=== PATIENT | female | born 1985 | race Caucasian/White ===

== ENCOUNTER → 2025-07-05 07:51 | Outpatient (REF) | payer BC, SELFPAY ==
--- OUTSIDE RECORDS SUMMARY | 2025-07-05 07:53 | XMS_ITS | Patient Health Record ---
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 Authorization received from SIGNATURE ON FILE 05-03-2025 Logged by Henri Moulton Lipid Panel-[id number] Reviewed date:05/04/2025 08:32:15 AM Interpretation: Performing Lab:[facility], [address], [place], Phone - [phone], Director - Anum Notes/Report: Cholesterol, Total 142 100-199 mg/dL Triglycerides 39 0-149 mg/dL HDL Cholesterol 64 >39 mg/dL VLDL Cholesterol Rodney 9 5-40 mg/dL LDL Chol Calc (NIH) 69 0-99 mg/dL Verbal Order Reviewed date:04/30/2025 09:43:48 PM Interpretation: Performing Lab:[facility], [address], [place], Phone - [phone], Director - Anum Notes/Report: See below: Comment: Please provide requested information and fax to . . The [place] Code of Federal Regulations requires a written and signed request be forwarded to a laboratory following a verbal order of a laboratory test. Please assist us to meet this requirement and to complete our records. . Date: Diagnosis code(s) provided for this order: Z13.1 Z00.00 E55.9 . Additional Diagnosis Code(s): Please Print . ICD-9/10 Diagnosis Code(s): . Physician or Authorized Designee: Please Print . Physician or Authorized Designee Signature: . Your Signature Confirms Your Order Of The Test(s) Listed . Additional Test(s) Requested Comment: Test(s) added per LYNDON LAINEZ at account 04-28-2025 Logged by Venus Santiago Test# [id number] Lipid Panel Comp. Metabolic Panel [id number] Reviewed date:04/28/2025 08:00:34 AM Interpretation: Performing Lab:[facility], [address], [place], Phone - [phone], Director - [facility] Notes/Report: Glucose 82 70-99 mg/dL BUN 17 6-24 mg/dL Creatinine 0.60 0.57-1.00 mg/dL eGFR 116 >59 mL/min/1.73 BUN/Creatinine Ratio 28 9-23 Sodium 140 134-144 mmol/L Potassium 4.1 3.5-5.2 mmol/L Chloride 103 96-106 mmol/L Carbon Dioxide, Total 20 20-29 mmol/L Calcium 9.2 8.7-10.2 mg/dL Protein, Total 6.9 6.0-8.5 g/dL Albumin 4.6 3.9-4.9 g/dL Globulin, Total 2.3 1.5-4.5 g/dL Bilirubin, Total 0.4 0.0-1.2 mg/dL Alkaline Phosphatase 91 44-121 IU/L AST (SGOT) 17 0-40 IU/L ALT (SGPT) 16 0-32 IU/L Vitamin D, [id number] Reviewed date:04/28/2025 08:00:34 AM Interpretation: [facility]forming [facility], [address] [place] [address], Phone - [phone], Director - MDJodry Notes/Report: Vitamin D, 25-Hydroxy 51.4 30.0-100.0 ng/mL Vitamin D deficiency has been defined by the [place] of [employer] and an Endocrine Society practice guideline as a level of serum 25-OH vitamin D less than 20 ng/mL (1,2). The Endocrine Society went on to further define vitamin D insufficiency as a level between 21 and 29 ng/mL (2). 1. IOM ([place] of [employer]). 2010. Dietary reference intakes for calcium and D. [place]: The National Academies Press. 2. Tammi MF, [place], Germain SEVILLA, et al. Evaluation, treatment, and prevention of vitamin D deficiency: an Endocrine Society clinical practice guideline. JCEM. 2010; 96(7):1911-30. CBC With Differential/Platel et-[id number] Reviewed date:04/28/2025 08:00:34 AM Interpretation: Performing Lab:[facility], [address] [place] [address], [place], Phone - [phone], Director - Anum Notes/Report: WBC 4.7 3.4-10.8 x10E3/uL RBC 4.13 3.77-5.28 x10E6/uL Hemoglobin 13.1 11.1-15.9 g/dL Hematocrit 39.9 34.0-46.6 % MCV 97 79-97 fL MCH 31.7 26.6-33.0 pg MCHC 32.8 31.5-35.7 g/dL RDW 11.8 11.7-15.4 % Platelets 215 150-450 x10E3/uL Neutrophils 48 Not Estab. % Lymphs 40 Not Estab. % Monocytes 10 Not Estab. % Eos 2 Not Estab. % Basos 0 Not Estab. % Neutrophils (Absolute) 2.2 1.4-7.0 x10E3/uL Lymphs (Absolute) 1.9 0.7-3.1 x10E3/uL Monocytes(Absolute) 0.5 0.1-0.9 x10E3/uL Eos (Absolute) 0.1 0.0-0.4 x10E3/uL Baso (Absolute) 0.0 0.0-0.2 x10E3/uL Immature Granulocytes 0 Not Estab. % Immature Grans (Abs) 0.0 0.0-0.1 x10E3/uL Urinalysis, Complete-[id number] Reviewed date:04/28/2025 08:00:34 AM Interpretation: Performing Lab:[facility] [place], [address] [place] [address], [place], Phone - [phone], Director - Anum Notes/Report: Specific [place] 1.008 1.005-1.030 pH 7.0 5.0-7.5 Urine-Color Yellow Yellow Appearance Clear Clear WBC Esterase Negative Negative Protein Negative Negative/Trace Glucose Negative Negative Ketones Negative Negative Occult Blood Negative Negative Bilirubin Negative Negative Urobilinogen,Semi-Qn 0.2 0.2-1.0 mg/dL Nitrite, Urine Negative Negative Microscopic Examination Micr oscopic follows if indicated. Microscopic Examination See below: Micr oscopic was indicated and was performed. WBC None seen 0 - 5 /hpf RBC None seen 0 - 2 /hpf Epithelial Cells (non renal) 0-10 0 - 10 /hpf Casts None seen None seen /lpf Bacteria None seen None seen/Few Hemoglobin [id number] Reviewed date:04/28/2025 08:00:34 AM Interpretation: Performing Lab:[facility] [place], [address] [place] [address], [place], Phone - [phone], Director - Anum Notes/Report: Hemoglobin A1c 5.3 4.8-5.6 % . Prediabetes: 5.7 - 6.4 Diabetes: >6.4 Glycemic control for adults with diabetes: <7.0 Reason For Referral No Information Medications Medication SIG (Take, Route, Frequency, Duration) Notes Start Date End Date Status Active Calcium Active Social History Tobacco Use: Social History Observation Description Date Details (start date - stop date) Never Smoker NA - NA Tobacco Use/Smoking Question Answer Notes Are you a nonsmoker Problems Problem Type SNOMED Code ICD Code Onset Dates Problem Status W/U Status Risk Notes Problem Vitamin D deficiency (29372979) Vitamin D deficiency, unspecified (E55.9) Active confirmed Problem Adult health examination (761970766) Adult general medical exam (Z00.00) Active confirmed Problem Vitamin D deficiency (69956527) Vitamin D deficiency (E55.9) Active confirmed Problem Diabetes mellitus screening (673356948) Diabetes mellitus screening (Z13.1) Active confirmed Problem Endocrine/metab olic screening (223460600) Encounter for screening for endocrine disorder (Z13.29) Active confirmed Problem Unable to concentrate (finding) (06696875) Difficulty concentrating (R41.840) Active confirmed Problem Generalized anxiety disorder (06589846) Anxiety, generalized (F41.1) Active confirmed Vital Signs Heart Rate 80 /min 05/08/2025 Oximetry 99 % 05/08/2025 Blood pressure diastolic 80 mm Hg 05/08/2025 Height 65 in 05/08/2025 Blood pressure systolic 118 mm Hg 05/08/2025 Encounters Encounter Location Date Provider Diagnosis [facility] [address] [place] [address] 04/03/2025 PETEREBEL BROWNA Anxiety, generalized F41.1 and Mother currently breast-feeding Z39.[address] [facility] [address] [place], [place] 05/08/2025 PETE CHANG Adult general medica l exam Z00.00 ; Thumb pain, unspecified laterality M79.646 ; Dizziness R42 ; Anxiety, generalized F41.1 ; Difficulty concentrating R41.840 ; 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 and Encounter for examination of blood pressure without abnormal findings Z01.30 [facility] [address] [address] 04/03/2025 PETE BERNARDO [facility] [address] 05/19/2025 PETE BERNARDO [facility] [address] [place] [address] 04/27/2025 PETE BERNARDO [facility] [address] [place] [address] 04/27/2025 PETE BERNARDO [facility] [address] [place] [address] 05/09/2025 PETE BERNARDO [facility] [address] [place] [address] 05/22/2025 PETE BERNARDO [facility] [address] [place] [address] 05/23/2025 PETE BERNARDO [facility] [address] [place] [address] 05/29/2025 PETE BERNARDO [facility] [address] [place] [address] 05/29/2025 PETE BERNARDO [facility] [address] [place] [address] 05/29/2025 PETE BERNARDO [facility] [address] [place] [address] 05/30/2025 PETE BERNARDO [facility] [address] [place] [address] 05/30/2025 PETE BERNARDO [facility] [address] [place] [address] 06/01/2025 PETE BERNARDO Assessments Encounter Date Diagnosis (ICD Code) Assessment Notes Treatment Notes Treatment Clinical Notes Section Notes 04/03/2025 Mother currently breast-feeding (ICD-10 - Z39.1) Yesenia is a pleasant 3-year-old female present today to establish care as a new patient. # Previously seen at [facility] primary care in [place]. Last seen over a year ago. Was more consistently seen at [facility] in [place] prior to this. # Anxiety: Not currently on medication. Coping well. # Patient has recently had 2 pregnancies within the past 2 years. Currently taking a . Currently breast-feeding. # Family history of mitral stenosis in mother. Mother suffered stroke at age 44. Was seen a few months ago at [facility] urgent care regarding dizziness spells. Echocardiogram was ordered in regards to dizziness, but this was not scheduled. Plan to order baseline labs and consider workup including EKG and echocardiogram. Will consider cardiology referral if indicated. # Due for mammogram since age 39. Currently breast feeding. Will wait and place order. # Prevention: Patient up-to-date on influenza and tetanus. Has had COVID-vaccine in the past, not up-to-date. Followed by [facility] up-to-date on Pap smears. Plan to order baseline labs and follow-up in 4 weeks for CPE. All questions answered to patients satisfaction. Patient verbalized understanding of diagnosis and treatments explained. To call sooner prior to next visit it any questions/concerns arise. Case discussed with collaborating physician Dr. Cohen who reviewed the assessment and plan. Chart, medications, labs, vital signs reviewed. Dictation was accomplished with the use of [employer] voice recognition software, prone to medical misidentifications and grammatical errors. This is unintentional and the practitioner does try to identify and correct these, but some could still be present. Please do not hesitate to contact practitioner for clarification. 04/03/2025 Anxiety, generalized (ICD-10 - F41.1) Yesenia is a pleasant 3-year-old female present today to establish care as a new patient. # Previously seen at [facility] in [place]. Last seen over a year ago. Was more consistently seen at [facility] in [place] prior to this. # Anxiety: Not currently on medication. Coping well. # Patient has recently had 2 pregnancies within the past 2 years. Currently taking a . Currently breast-feeding. # Family history of mitral stenosis in mother. Mother suffered stroke at age 44. Was seen a few months ago at [facility] urgent care regarding dizziness spells. Echocardiogram was ordered in regards to dizziness, but this was not scheduled. Plan to order baseline labs and consider workup including EKG and echocardiogram. Will consider cardiology referral if indicated. # Due for mammogram since age 39. Currently breast feeding. Will wait and place order. # Prevention: Patient up-to-date on influenza and tetanus. Has had COVID-vaccine in the past, not up-to-date. Followed by [facility] up-to-date on Pap smears. Plan to order baseline labs and follow-up in 4 weeks for CPE. All questions answered to patients satisfaction. Patient verbalized understanding of diagnosis and treatments explained. To call sooner prior to next visit it any questions/concerns arise. Case discussed with collaborating physician Dr. Cohen who reviewed the assessment and plan. Chart, medications, labs, vital signs reviewed. Dictation was accomplished with the use of Dragon voice recognition software, prone to medical misidentifications and grammatical errors. This is unintentional and the practitioner does try to identify and correct these, but some could still be present. Please do not hesitate to contact practitioner for clarification. 05/08/2025 Adult general medical exam (ICD-10 - Z00.00) Yesenia is a pleasant 39-year-old female present today for CPE. #Vaccines: Up-to-date #Screening: Followed by [facility] up-to-date on Pap smear. Not up-to-date on mammogram however patient is currently breast-feeding. #Patient initially declined stepping on the scale today for her weight. Discussed with patient that this was not obtained at her new patient visit and we will need to assess once a year. Weight obtained today however not discussed per patient's request. # Dizziness: Patient has experienced intermittent dizziness for over the past month. States that occurs intermittently and only lasts a few seconds. Does mention that if feels as though she is off balance. Denies chest pain, shortness of breath, vision changes, hearing loss, palpitations, nausea or vomiting. Has family history of aortic stenosis in her mother. Mother suffered a stroke at age 44 due to this. Patient previously seen at an urgent care regarding this and echocardiogram was ordered however patient was not called regarding scheduling this. Discussed prescription of meclizine to take as needed for which patient is not interested as she is currently breast-feeding and concern regarding introducing any medications at this time. Plan to order echocardiogram for baseline given family history of aortic stenosis and current dizzy spells. Will consider Holter monitor. #Anxiety: PHQ-9 score of 3. Anxiety previously managed with therapy, but patient has not been involved within the past year. Overall states she is coping well and finds that she does not need therapy. Denies depression, SI/HI. Will continue monitor. #Difficulty concentrating: PHQ-9 score regarding concentration. Has not previously been evaluated for ADHD. Concern regarding difficulty with organization as well as completing tasks. Provided handout regarding psych referrals in the area and recommended [facility] in [place] for further evaluation. With official diagnosis, will can begin prescribing. 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 States both of her thumbs have been crooked however she is not concerned regarding aesthetics. Left thumb with overuse will sometimes develop tenderness and numbness. Will sometimes have difficulty with flexion of the thumb. Does not use any htuj-qmg-iucxbzp medication such as ibuprofen for inflammatory or pain benefit. Would like to avoid medication use at this time. Denies any recent trauma. Will obtain x-ray at this time for further evaluation. Did discuss referral to [facility] hand surgery for further evaluation. #Patient previously followed by dermatology for annual skin checks. Denies any nevi however has generalized freckles. No longer followed by dermatology. Advised patient to wear sunscreen daily while out in the sun. Advised to wear hats while in the sun in addition to longsleeve shirts as patient is fair skinned. Discussed ABCDs in regards to self skin checks. Advised to perform self exams routinely and if there is any new lesions to call for an exam. Will consider dermatology referral at patient's request. # Labs all within normal limits. # We will schedule CPE in 1 year. Patient seen and examined. Comprehensive discussion was done on the following. 1. Nutrition: It is important to follow a healthy diet based on lots of vegetables and legumes and good fat. Avoid processed food and processed carbohydrates. Prepare your own meals. Read labels and avoid high fructose corn syrup, processed chemicals added to increase shelf life and preprepared meals. Avoid fast foods. Eat slowly and plan meals for a week. Try to count calories and be mindful of daily calorie intake. Get into the habit of keeping an eye on your weight by using an appropriate scale. Learn to log exercise and discussed fitness Apps like [employer] which can help keep log off calories taken versus calories burned. Local food should be preferred. Discussed Dirty Dozen Versus Clean Fifteen. Discussed healthy supplements like fish oil, Tumeric, Curcumin, Melatonin, Resveratrol, Probiotics, Vitamin-D, Alpha-Lipoic acid, Vitamin-D and coconut oil. 2. It is important to exercise regularly. Is a good habit to walk at least 30 minutes a day. Gentle weightlifting with standard precautions to protect the back. Finding activity like cycling or hiking and get into the habit of engaging in it. Stretching before and after the exercises important. It is also important to contact me if there are any problems like shortness of breath, chest pain, back pain and joint or muscle pain associated with the exercise. 3. Discussed age appropriate screening guidelines. Colonoscopy needs to start at age 50 with stool for occult blood as appropriate. There is a new test that can test for genetic abnormalities in the stool sample, Cologuard. This would not replace a colonoscopy but could be used as a screening tool for patients who do not want a colonoscopy. We discussed the importance of early detection of colon cancer. 4. Discussed current PSA screening. PSA screening can be done in most patients between age 50 and 65. However early detection of prostate cancer needs to carefully be balanced with complications with treatment. These include incontinence, impotence etc. Each patient should decide if they would like to have this test. 5. Discussed safe driving and no use of smart phone while driving 6. Age-appropriate immunizations were discussed. A tetanus booster is needed every 10 years. Flu vaccine is recommended every year just before the start of the flu season. Shingles vaccine is recommended after age 50 but not all insurances cover it. Pneumonia vaccine is given after age 65 unless there are certain comorbidities for which it is started earlier. 7. Diagnostic labs were discussed. These could include/not limited to CBC CMP and lipids with fasting blood glucose and insulin levels. Vitamin D and hemoglobin A1c testing might be appropriate. All questions answered to patients satisfaction. Patient verbalized understanding of diagnosis and treatments explained. To call sooner prior to next visit it any questions/concerns arise. Case discussed with collaborating physician Dr. Cohen who reviewed the assessment and plan. Chart, medications, labs, vital signs reviewed. Dictation was accomplished with the use of [employer]at voice recognition software, prone to medical misidentifications and grammatical errors. This is unintentional and the practitioner does try to identify and correct these, but some could still be present. Please do not hesitate to contact practitioner for clarification. 05/08/2025 Thumb pain, unspecified laterality (ICD-10 - M79.646) Yesenia is a pleasant 39-year-old female present today for CPE. #Vaccines: Up-to-date #Screening: Followed by [facility] up-to-date on Pap smear. Not up-to-date on mammogram however patient is currently breast-feeding. #Patient initially declined stepping on the scale today for her weight. Discussed with patient that this was not obtained at her new patient visit and we will need to assess once a year. Weight obtained today however not discussed per patient's request. # Dizziness: Patient has experienced intermittent dizziness for over the past month. States that occurs intermittently and only lasts a few seconds. Does mention that if feels as though she is off balance. Denies chest pain, shortness of breath, vision changes, hearing loss, palpitations, nausea or vomiting. Has family history of aortic stenosis in her mother. Mother suffered a stroke at age 44 due to this. Patient previously seen at an urgent care regarding this and echocardiogram was ordered however patient was not called regarding scheduling this. Discussed prescription of meclizine to take as needed for which patient is not interested as she is currently breast-feeding and concern regarding introducing any medications at this time. Plan to order echocardiogram for baseline given family history of aortic stenosis and current dizzy spells. Will consider Holter monitor. #Anxiety: PHQ-9 score of 3. Anxiety previously managed with therapy, but patient has not been involved within the past year. Overall states she is coping well and finds that she does not need therapy. Denies depression, SI/HI. Will continue monitor. #Difficulty concentrating: PHQ-9 score regarding concentration. Has not previously been evaluated for ADHD. Concern regarding difficulty with organization as well as completing tasks. Provided handout regarding psych referrals in the area and recommended [facility] in [place] for further evaluation. With official diagnosis, will can begin prescribing. 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 States both of her thumbs have been crooked however she is not concerned regarding aesthetics. Left thumb with overuse will sometimes develop tenderness and numbness. Will sometimes have difficulty with flexion of the thumb. Does not use any hrjh-zux-wrlywoi medication such as ibuprofen for inflammatory or pain benefit. Would like to avoid medication use at this time. Denies any recent trauma. Will obtain x-ray at this time for further evaluation. Did discuss referral to [facility] hand surgery for further evaluation. #Patient previously followed by dermatology for annual skin checks. Denies any nevi however has generalized freckles. No longer followed by dermatology. Advised patient to wear sunscreen daily while out in the sun. Advised to wear hats while in the sun in addition to longsleeve shirts as patient is fair skinned. Discussed ABCDs in regards to self skin checks. Advised to perform self exams routinely and if there is any new lesions to call for an exam. Will consider dermatology referral at patient's request. # Labs all within normal limits. # We will schedule CPE in 1 year. Patient seen and examined. Comprehensive discussion was done on the following. 1. Nutrition: It is important to follow a healthy diet based on lots of vegetables and legumes and good fat. Avoid processed food and processed carbohydrates. Prepare your own meals. Read labels and avoid high fructose corn syrup, processed chemicals added to increase shelf life and preprepared meals. Avoid fast foods. Eat slowly and plan meals for a week. Try to count calories and be mindful of daily calorie intake. Get into the habit of keeping an eye on your weight by using an appropriate scale. Learn to log exercise and discussed fitness Apps like [employer] which can help keep log off calories taken versus calories burned. Local food should be preferred. Discussed Dirty Dozen Versus Clean Fifteen. Discussed healthy supplements like fish oil, Tumeric, Curcumin, Melatonin, Resveratrol, Probiotics, Vitamin-D, Alpha-Lipoic acid, Vitamin-D and coconut oil. 2. It is important to exercise regularly. Is a good habit to walk at least 30 minutes a day. Gentle weightlifting with standard precautions to protect the back. Finding activity like cycling or hiking and get into the habit of engaging in it. Stretching before and after the exercises important. It is also important to contact me if there are any problems like shortness of breath, chest pain, back pain and joint or muscle pain associated with the exercise. 3. Discussed age appropriate screening guidelines. Colonoscopy needs to start at age 50 with stool for occult blood as appropriate. There is a new test that can test for genetic abnormalities in the stool sample, Cologuard. This would not replace a colonoscopy but could be used as a screening tool for patients who do not want a colonoscopy. We discussed the importance of early detection of colon cancer. 4. Discussed current PSA screening. PSA screening can be done in most patients between age 50 and 65. However early detection of prostate cancer needs to carefully be balanced with complications with treatment. These include incontinence, impotence etc. Each patient should decide if they would like to have this test. 5. Discussed safe driving and no use of smart phone while driving 6. Age-appropriate immunizations were discussed. A tetanus booster is needed every 10 years. Flu vaccine is recommended every year just before the start of the flu season. Shingles vaccine is recommended after age 50 but not all insurances cover it. Pneumonia vaccine is given after age 65 unless there are certain comorbidities for which it is started earlier. 7. Diagnostic labs were discussed. These could include/not limited to CBC CMP and lipids with fasting blood glucose and insulin levels. Vitamin D and hemoglobin A1c testing might be appropriate. All questions answered to patients satisfaction. Patient verbalized understanding of diagnosis and treatments explained. To call sooner prior to next visit it any questions/concerns arise. Case discussed with collaborating physician Dr. Cohen who reviewed the assessment and plan. Chart, medications, labs, vital signs reviewed. Dictation was accomplished with the use of [employer] voice recognition software, prone to medical misidentifications and grammatical errors. This is unintentional and the practitioner does try to identify and correct these, but some could still be present. Please do not hesitate to contact practitioner for clarification. 05/08/2025 Dizziness (ICD-10 - R42) Yesenia is a pleasant 39-year-old female present today for CPE. #Vaccines: Up-to-date #Screening: Followed by [facility] up-to-date on Pap smear. Not up-to-date on mammogram however patient is currently breast-feeding. #Patient initially declined stepping on the scale today for her weight. Discussed with patient that this was not obtained at her new patient visit and we will need to assess once a year. Weight obtained today however not discussed per patient's request. # Dizziness: Patient has experienced intermittent dizziness for over the past month. States that occurs intermittently and only lasts a few seconds. Does mention that if feels as though she is off balance. Denies chest pain, shortness of breath, vision changes, hearing loss, palpitations, nausea or vomiting. Has family history of aortic stenosis in her mother. Mother suffered a stroke at age 44 due to this. Patient previously seen at an urgent care regarding this and echocardiogram was ordered however patient was not called regarding scheduling this. Discussed prescription of meclizine to take as needed for which patient is not interested as she is currently breast-feeding and concern regarding introducing any medications at this time. Plan to order echocardiogram for baseline given family history of aortic stenosis and current dizzy spells. Will consider Holter monitor. #Anxiety: PHQ-9 score of 3. Anxiety previously managed with therapy, but patient has not been involved within the past year. Overall states she is coping well and finds that she does not need therapy. Denies depression, SI/HI. Will continue monitor. #Difficulty concentrating: PHQ-9 score regarding concentration. Has not previously been evaluated for ADHD. Concern regarding difficulty with organization as well as completing tasks. Provided handout regarding psych referrals in the area and recommended [facility] in [place] for further evaluation. With official diagnosis, will can begin prescribing. 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 States both of her thumbs have been crooked however she is not concerned regarding aesthetics. Left thumb with overuse will sometimes develop tenderness and numbness. Will sometimes have difficulty with flexion of the thumb. Does not use any ouvt-rtp-ybyelan medication such as ibuprofen for inflammatory or pain benefit. Would like to avoid medication use at this time. Denies any recent trauma. Will obtain x-ray at this time for further evaluation. Did discuss referral to [facility] hand surgery for further evaluation. #Patient previously followed by dermatology for annual skin checks. Denies any nevi however has generalized freckles. No longer followed by dermatology. Advised patient to wear sunscreen daily while out in the sun. Advised to wear hats while in the sun in addition to longsleeve shirts as patient is fair skinned. Discussed ABCDs in regards to self skin checks. Advised to perform self exams routinely and if there is any new lesions to call for an exam. Will consider dermatology referral at patient's request. # Labs all within normal limits. # We will schedule CPE in 1 year. Patient seen and examined. Comprehensive discussion was done on the following. 1. Nutrition: It is important to follow a healthy diet based on lots of vegetables and legumes and good fat. Avoid processed food and processed carbohydrates. Prepare your own meals. Read labels and avoid high fructose corn syrup, processed chemicals added to increase shelf life and preprepared meals. Avoid fast foods. Eat slowly and plan meals for a week. Try to count calories and be mindful of daily calorie intake. Get into the habit of keeping an eye on your weight by using an appropriate scale. Learn to log exercise and discussed fitness Apps like [employer] which can help keep log off calories taken versus calories burned. Local food should be preferred. Discussed Dirty Dozen Versus Clean Fifteen. Discussed healthy supplements like fish oil, Tumeric, Curcumin, Melatonin, Resveratrol, Probiotics, Vitamin-D, Alpha-Lipoic acid, Vitamin-D and coconut oil. 2. It is important to exercise regularly. Is a good habit to walk at least 30 minutes a day. Gentle weightlifting with standard precautions to protect the back. Finding activity like cycling or hiking and get into the habit of engaging in it. Stretching before and after the exercises important. It is also important to contact me if there are any problems like shortness of breath, chest pain, back pain and joint or muscle pain associated with the exercise. 3. Discussed age appropriate screening guidelines. Colonoscopy needs to start at age 50 with stool for occult blood as appropriate. There is a new test that can test for genetic abnormalities in the stool sample, Cologuard. This would not replace a colonoscopy but could be used as a screening tool for patients who do not want a colonoscopy. We discussed the importance of early detection of colon cancer. 4. Discussed current PSA screening. PSA screening can be done in most patients between age 50 and 65. However early detection of prostate cancer needs to carefully be balanced with complications with treatment. These include incontinence, impotence etc. Each patient should decide if they would like to have this test. 5. Discussed safe driving and no use of smart phone while driving 6. Age-appropriate immunizations were discussed. A tetanus booster is needed every 10 years. Flu vaccine is recommended every year just before the start of the flu season. Shingles vaccine is recommended after age 50 but not all insurances cover it. Pneumonia vaccine is given after age 65 unless there are certain comorbidities for which it is started earlier. 7. Diagnostic labs were discussed. These could include/not limited to CBC CMP and lipids with fasting blood glucose and insulin levels. Vitamin D and hemoglobin A1c testing might be appropriate. All questions answered to patients satisfaction. Patient verbalized understanding of diagnosis and treatments explained. To call sooner prior to next visit it any questions/concerns arise. Case discussed with collaborating physician Dr. Cohen who reviewed the assessment and plan. Chart, medications, labs, vital signs reviewed. Dictation was accomplished with the use of [employer] voice recognition software, prone to medical misidentifications and grammatical errors. This is unintentional and the practitioner does try to identify and correct these, but some could still be present. Please do not hesitate to contact practitioner for clarification. 05/08/2025 Anxiety, generalized (ICD-10 - F41.1) Yesenia is a pleasant 39-year-old female present today for CPE. #Vaccines: Up-to-date #Screening: Followed by [facility] up-to-date on Pap smear. Not up-to-date on mammogram however patient is currently breast-feeding. #Patient initially declined stepping on the scale today for her weight. Discussed with patient that this was not obtained at her new patient visit and we will need to assess once a year. Weight obtained today however not discussed per patient's request. # Dizziness: Patient has experienced intermittent dizziness for over the past month. States that occurs intermittently and only lasts a few seconds. Does mention that if feels as though she is off balance. Denies chest pain, shortness of breath, vision changes, hearing loss, palpitations, nausea or vomiting. Has family history of aortic stenosis in her mother. Mother suffered a stroke at age 44 due to this. Patient previously seen at an urgent care regarding this and echocardiogram was ordered however patient was not called regarding scheduling this. Discussed prescription of meclizine to take as needed for which patient is not interested as she is currently breast-feeding and concern regarding introducing any medications at this time. Plan to order echocardiogram for baseline given family history of aortic stenosis and current dizzy spells. Will consider Holter monitor. #Anxiety: PHQ-9 score of 3. Anxiety previously managed with therapy, but patient has not been involved within the past year. Overall states she is coping well and finds that she does not need therapy. Denies depression, SI/HI. Will continue monitor. #Difficulty concentrating: PHQ-9 score regarding concentration. Has not previously been evaluated for ADHD. Concern regarding difficulty with organization as well as completing tasks. Provided handout regarding psych referrals in the area and recommended [facility] in [place] for further evaluation. With official diagnosis, will can begin prescribing. 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 States both of her thumbs have been crooked however she is not concerned regarding aesthetics. Left thumb with overuse will sometimes develop tenderness and numbness. Will sometimes have difficulty with flexion of the thumb. Does not use any cbxg-lhf-ggvfmew medication such as ibuprofen for inflammatory or pain benefit. Would like to avoid medication use at this time. Denies any recent trauma. Will obtain x-ray at this time for further evaluation. Did discuss referral to [facility] hand surgery for further evaluation. #Patient previously followed by dermatology for annual skin checks. Denies any nevi however has generalized freckles. No longer followed by dermatology. Advised patient to wear sunscreen daily while out in the sun. Advised to wear hats while in the sun in addition to longsleeve shirts as patient is fair skinned. Discussed ABCDs in regards to self skin checks. Advised to perform self exams routinely and if there is any new lesions to call for an exam. Will consider dermatology referral at patient's request. # Labs all within normal limits. # We will schedule CPE in 1 year. Patient seen and examined. Comprehensive discussion was done on the following. 1. Nutrition: It is important to follow a healthy diet based on lots of vegetables and legumes and good fat. Avoid processed food and processed carbohydrates. Prepare your own meals. Read labels and avoid high fructose corn syrup, processed chemicals added to increase shelf life and preprepared meals. Avoid fast foods. Eat slowly and plan meals for a week. Try to count calories and be mindful of daily calorie intake. Get into the habit of keeping an eye on your weight by using an appropriate scale. Learn to log exercise and discussed fitness Apps like [employer] which can help keep log off calories taken versus calories burned. Local food should be preferred. Discussed Dirty Dozen Versus Clean Fifteen. Discussed healthy supplements like fish oil, Tumeric, Curcumin, Melatonin, Resveratrol, Probiotics, Vitamin-D, Alpha-Lipoic acid, Vitamin-D and coconut oil. 2. It is important to exercise regularly. Is a good habit to walk at least 30 minutes a day. Gentle weightlifting with standard precautions to protect the back. Finding activity like cycling or hiking and get into the habit of engaging in it. Stretching before and after the exercises important. It is also important to contact me if there are any problems like shortness of breath, chest pain, back pain and joint or muscle pain associated with the exercise. 3. Discussed age appropriate screening guidelines. Colonoscopy needs to start at age 50 with stool for occult blood as appropriate. There is a new test that can test for genetic abnormalities in the stool sample, Cologuard. This would not replace a colonoscopy but could be used as a screening tool for patients who do not want a colonoscopy. We discussed the importance of early detection of colon cancer. 4. Discussed current PSA screening. PSA screening can be done in most patients between age 50 and 65. However early detection of prostate cancer needs to carefully be balanced with complications with treatment. These include incontinence, impotence etc. Each patient should decide if they would like to have this test. 5. Discussed safe driving and no use of smart phone while driving 6. Age-appropriate immunizations were discussed. A tetanus booster is needed every 10 years. Flu vaccine is recommended every year just before the start of the flu season. Shingles vaccine is recommended after age 50 but not all insurances cover it. Pneumonia vaccine is given after age 65 unless there are certain comorbidities for which it is started earlier. 7. Diagnostic labs were discussed. These could include/not limited to CBC CMP and lipids with fasting blood glucose and insulin levels. Vitamin D and hemoglobin A1c testing might be appropriate. All questions answered to patients satisfaction. Patient verbalized understanding of diagnosis and treatments explained. To call sooner prior to next visit it any questions/concerns arise. Case discussed with collaborating physician Dr. Cohen who reviewed the assessment and plan. Chart, medications, labs, vital signs reviewed. Dictation was accomplished with the use of [employer] voice recognition software, prone to medical misidentifications and grammatical errors. This is unintentional and the practitioner does try to identify and correct these, but some could still be present. Please do not hesitate to contact practitioner for clarification. 05/08/2025 Difficulty concentrating (ICD-10 - R41.840) Yesenia is a pleasant 39-year-old female present today for CPE. #Vaccines: Up-to-date #Screening: Followed by [facility] up-to-date on Pap smear. Not up-to-date on mammogram however patient is currently breast-feeding. #Patient initially declined stepping on the scale today for her weight. Discussed with patient that this was not obtained at her new patient visit and we will need to assess once a year. Weight obtained today however not discussed per patient's request. # Dizziness: Patient has experienced intermittent dizziness for over the past month. States that occurs intermittently and only lasts a few seconds. Does mention that if feels as though she is off balance. Denies chest pain, shortness of breath, vision changes, hearing loss, palpitations, nausea or vomiting. Has family history of aortic stenosis in her mother. Mother suffered a stroke at age 44 due to this. Patient previously seen at an urgent care regarding this and echocardiogram was ordered however patient was not called regarding scheduling this. Discussed prescription of meclizine to take as needed for which patient is not interested as she is currently breast-feeding and concern regarding introducing any medications at this time. Plan to order echocardiogram for baseline given family history of aortic stenosis and current dizzy spells. Will consider Holter monitor. #Anxiety: PHQ-9 score of 3. Anxiety previously managed with therapy, but patient has not been involved within the past year. Overall states she is coping well and finds that she does not need therapy. Denies depression, SI/HI. Will continue monitor. #Difficulty concentrating: PHQ-9 score regarding concentration. Has not previously been evaluated for ADHD. Concern regarding difficulty with organization as well as completing tasks. Provided handout regarding psych referrals in the area and recommended [facility] in [place] for further evaluation. With official diagnosis, will can begin prescribing. 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 States both of her thumbs have been crooked however she is not concerned regarding aesthetics. Left thumb with overuse will sometimes develop tenderness and numbness. Will sometimes have difficulty with flexion of the thumb. Does not use any nxfq-fnz-xfbuyua medication such as ibuprofen for inflammatory or pain benefit. Would like to avoid medication use at this time. Denies any recent trauma. Will obtain x-ray at this time for further evaluation. Did discuss referral to [facility] hand surgery for further evaluation. #Patient previously followed by dermatology for annual skin checks. Denies any nevi however has generalized freckles. No longer followed by dermatology. Advised patient to wear sunscreen daily while out in the sun. Advised to wear hats while in the sun in addition to longsleeve shirts as patient is fair skinned. Discussed ABCDs in regards to self skin checks. Advised to perform self exams routinely and if there is any new lesions to call for an exam. Will consider dermatology referral at patient's request. # Labs all within normal limits. # We will schedule CPE in 1 year. Patient seen and examined. Comprehensive discussion was done on the following. 1. Nutrition: It is important to follow a healthy diet based on lots of vegetables and legumes and good fat. Avoid processed food and processed carbohydrates. Prepare your own meals. Read labels and avoid high fructose corn syrup, processed chemicals added to increase shelf life and preprepared meals. Avoid fast foods. Eat slowly and plan meals for a week. Try to count calories and be mindful of daily calorie intake. Get into the habit of keeping an eye on your weight by using an appropriate scale. Learn to log exercise and discussed fitness Apps like [employer] which can help keep log off calories taken versus calories burned. Local food should be preferred. Discussed [employer] Versus [employer]. Discussed healthy supplements like fish oil, Tumeric, Curcumin, Melatonin, Resveratrol, Probiotics, Vitamin-D, Alpha-Lipoic acid, Vitamin-D and coconut oil. 2. It is important to exercise regularly. Is a good habit to walk at least 30 minutes a day. Gentle weightlifting with standard precautions to protect the back. Finding activity like cycling or hiking and get into the habit of engaging in it. Stretching before and after the exercises important. It is also important to contact me if there are any problems like shortness of breath, chest pain, back pain and joint or muscle pain associated with the exercise. 3. Discussed age appropriate screening guidelines. Colonoscopy needs to start at age 50 with stool for occult blood as appropriate. There is a new test that can test for genetic abnormalities in the stool sample, Cologuard. This would not replace a colonoscopy but could be used as a screening tool for patients who do not want a colonoscopy. We discussed the importance of early detection of colon cancer. 4. Discussed current PSA screening. PSA screening can be done in most patients between age 50 and 65. However early detection of prostate cancer needs to carefully be balanced with complications with treatment. These include incontinence, impotence etc. Each patient should decide if they would like to have this test. 5. Discussed safe driving and no use of smart phone while driving 6. Age-appropriate immunizations were discussed. A tetanus booster is needed every 10 years. Flu vaccine is recommended every year just before the start of the flu season. Shingles vaccine is recommended after age 50 but not all insurances cover it. Pneumonia vaccine is given after age 65 unless there are certain comorbidities for which it is started earlier. 7. Diagnostic labs were discussed. These could include/not limited to CBC CMP and lipids with fasting blood glucose and insulin levels. Vitamin D and hemoglobin A1c testing might be appropriate. All questions answered to patients satisfaction. Patient verbalized understanding of diagnosis and treatments explained. To call sooner prior to next visit it any questions/concerns arise. Case discussed with collaborating physician Dr. Cohen who reviewed the assessment and plan. Chart, medications, labs, vital signs reviewed. Dictation was accomplished with the use of [employer] voice recognition software, prone to medical misidentifications and grammatical errors. This is unintentional and the practitioner does try to identify and correct these, but some could still be present. Please do not hesitate to contact practitioner for clarification. 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 #Vaccines: Up-to-date #Screening: Followed by [facility] up-to-date on Pap smear. Not up-to-date on mammogram however patient is currently breast-feeding. #Patient initially declined stepping on the scale today for her weight. Discussed with patient that this was not obtained at her new patient visit and we will need to assess once a year. Weight obtained today however not discussed per patient's request. # Dizziness: Patient has experienced intermittent dizziness for over the past month. States that occurs intermittently and only lasts a few seconds. Does mention that if feels as though she is off balance. Denies chest pain, shortness of breath, vision changes, hearing loss, palpitations, nausea or vomiting. Has family history of aortic stenosis in her mother. Mother suffered a stroke at age 44 due to this. Patient previously seen at an urgent care regarding this and echocardiogram was ordered however patient was not called regarding scheduling this. Discussed prescription of meclizine to take as needed for which patient is not interested as she is currently breast-feeding and concern regarding introducing any medications at this time. Plan to order echocardiogram for baseline given family history of aortic stenosis and current dizzy spells. Will consider Holter monitor. #Anxiety: PHQ-9 score of 3. Anxiety previously managed with therapy, but patient has not been involved within the past year. Overall states she is coping well and finds that she does not need therapy. Denies depression, SI/HI. Will continue monitor. #Difficulty concentrating: PHQ-9 score regarding concentration. Has not previously been evaluated for ADHD. Concern regarding difficulty with organization as well as completing tasks. Provided handout regarding psych referrals in the area and recommended [facility] in [place] for further evaluation. With official diagnosis, will can begin prescribing. 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 States both of her thumbs have been crooked however she is not concerned regarding aesthetics. Left thumb with overuse will sometimes develop tenderness and numbness. Will sometimes have difficulty with flexion of the thumb. Does not use any fpug-vne-boxosgl medication such as ibuprofen for inflammatory or pain benefit. Would like to avoid medication use at this time. Denies any recent trauma. Will obtain x-ray at this time for further evaluation. Did discuss referral to [facility] hand surgery for further evaluation. #Patient previously followed by dermatology for annual skin checks. Denies any nevi however has generalized freckles. No longer followed by dermatology. Advised patient to wear sunscreen daily while out in the sun. Advised to wear hats while in the sun in addition to longsleeve shirts as patient is fair skinned. Discussed ABCDs in regards to self skin checks. Advised to perform self exams routinely and if there is any new lesions to call for an exam. Will consider dermatology referral at patient's request. # Labs all within normal limits. # We will schedule CPE in 1 year. Patient seen and examined. Comprehensive discussion was done on the following. 1. Nutrition: It is important to follow a healthy diet based on lots of vegetables and legumes and good fat. Avoid processed food and processed carbohydrates. Prepare your own meals. Read labels and avoid high fructose corn syrup, processed chemicals added to increase shelf life and preprepared meals. Avoid fast foods. Eat slowly and plan meals for a week. Try to count calories and be mindful of daily calorie intake. Get into the habit of keeping an eye on your weight by using an appropriate scale. Learn to log exercise and discussed fitness Apps like [employer] (WCG)pal/loseit which can help keep log off calories taken versus calories burned. Local food should be preferred. Discussed Dirty Dozen Versus Clean Fifteen. Discussed healthy supplements like fish oil, Tumeric, Curcumin, Melatonin, Resveratrol, Probiotics, Vitamin-D, Alpha-Lipoic acid, Vitamin-D and coconut oil. 2. It is important to exercise regularly. Is a good habit to walk at least 30 minutes a day. Gentle weightlifting with standard precautions to protect the back. Finding activity like cycling or hiking and get into the habit of engaging in it. Stretching before and after the exercises important. It is also important to contact me if there are any problems like shortness of breath, chest pain, back pain and joint or muscle pain associated with the exercise. 3. Discussed age appropriate screening guidelines. Colonoscopy needs to start at age 50 with stool for occult blood as appropriate. There is a new test that can test for genetic abnormalities in the stool sample, Cologuard. This would not replace a colonoscopy but could be used as a screening tool for patients who do not want a colonoscopy. We discussed the importance of early detection of colon cancer. 4. Discussed current PSA screening. PSA screening can be done in most patients between age 50 and 65. However early detection of prostate cancer needs to carefully be balanced with complications with treatment. These include incontinence, impotence etc. Each patient should decide if they would like to have this test. 5. Discussed safe driving and no use of smart phone while driving 6. Age-appropriate immunizations were discussed. A tetanus booster is needed every 10 years. Flu vaccine is recommended every year just before the start of the flu season. Shingles vaccine is recommended after age 50 but not all insurances cover it. Pneumonia vaccine is given after age 65 unless there are certain comorbidities for which it is started earlier. 7. Diagnostic labs were discussed. These could include/not limited to CBC CMP and lipids with fasting blood glucose and insulin levels. Vitamin D and hemoglobin A1c testing might be appropriate. All questions answered to patients satisfaction. Patient verbalized understanding of diagnosis and treatments explained. To call sooner prior to next visit it any questions/concerns arise. Case discussed with collaborating physician Dr. Cohen who reviewed the assessment and plan. Chart, medications, labs, vital signs reviewed. Dictation was accomplished with the use of [employer] voice recognition software, prone to medical misidentifications and grammatical errors. This is unintentional and the practitioner does try to identify and correct these, but some could still be present. Please do not hesitate to contact practitioner for clarification. 05/08/2025 Encounter for examination of blood pressure without abnormal findings (ICD-10 - Z01.30) Yesenia is a pleasant 39-year-old female present today for CPE. #Vaccines: Up-to-date #Screening: Followed by [facility] up-to-date on Pap smear. Not up-to-date on mammogram however patient is currently breast-feeding. #Patient initially declined stepping on the scale today for her weight. Discussed with patient that this was not obtained at her new patient visit and we will need to assess once a year. Weight obtained today however not discussed per patient's request. # Dizziness: Patient has experienced intermittent dizziness for over the past month. States that occurs intermittently and only lasts a few seconds. Does mention that if feels as though she is off balance. Denies chest pain, shortness of breath, vision changes, hearing loss, palpitations, nausea or vomiting. Has family history of aortic stenosis in her mother. Mother suffered a stroke at age 44 due to this. Patient previously seen at an urgent care regarding this and echocardiogram was ordered however patient was not called regarding scheduling this. Discussed prescription of meclizine to take as needed for which patient is not interested as she is currently breast-feeding and concern regarding introducing any medications at this time. Plan to order echocardiogram for baseline given family history of aortic stenosis and current dizzy spells. Will consider Holter monitor. #Anxiety: PHQ-9 score of 3. Anxiety previously managed with therapy, but patient has not been involved within the past year. Overall states she is coping well and finds that she does not need therapy. Denies depression, SI/HI. Will continue monitor. #Difficulty concentrating: PHQ-9 score regarding concentration. Has not previously been evaluated for ADHD. Concern regarding difficulty with organization as well as completing tasks. Provided handout regarding psych referrals in the area and recommended [facility] [place] for further evaluation. With official diagnosis, will can begin prescribing. 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 States both of her thumbs have been crooked however she is not concerned regarding aesthetics. Left thumb with overuse will sometimes develop tenderness and numbness. Will sometimes have difficulty with flexion of the thumb. Does not use any hwwt-frm-ybulcmy medication such as ibuprofen for inflammatory or pain benefit. Would like to avoid medication use at this time. Denies any recent trauma. Will obtain x-ray at this time for further evaluation. Did discuss referral to [facility] hand surgery for further evaluation. #Patient previously followed by dermatology for annual skin checks. Denies any nevi however has generalized freckles. No longer followed by dermatology. Advised patient to wear sunscreen daily while out in the sun. Advised to wear hats while in the sun in addition to longsleeve shirts as patient is fair skinned. Discussed ABCDs in regards to self skin checks. Advised to perform self exams routinely and if there is any new lesions to call for an exam. Will consider dermatology referral at patient's request. # Labs all within normal limits. # We will schedule CPE in 1 year. Patient seen and examined. Comprehensive discussion was done on the following. 1. Nutrition: It is important to follow a healthy diet based on lots of vegetables and legumes and good fat. Avoid processed food and processed carbohydrates. Prepare your own meals. Read labels and avoid high fructose corn syrup, processed chemicals added to increase shelf life and preprepared meals. Avoid fast foods. Eat slowly and plan meals for a week. Try to count calories and be mindful of daily calorie intake. Get into the habit of keeping an eye on your weight by using an appropriate scale. Learn to log exercise and discussed fitness Apps like [employer] ([employer]pal/[employer] which can help keep log off calories taken versus calories burned. Local food should be preferred. Discussed Dirty Dozen Versus Clean Fifteen. Discussed healthy supplements like fish oil, Tumeric, Curcumin, Melatonin, Resveratrol, Probiotics, Vitamin-D, Alpha-Lipoic acid, Vitamin-D and coconut oil. 2. It is important to exercise regularly. Is a good habit to walk at least 30 minutes a day. Gentle weightlifting with standard precautions to protect the back. Finding activity like cycling or hiking and get into the habit of engaging in it. Stretching before and after the exercises important. It is also important to contact me if there are any problems like shortness of breath, chest pain, back pain and joint or muscle pain associated with the exercise. 3. Discussed age appropriate screening guidelines. Colonoscopy needs to start at age 50 with stool for occult blood as appropriate. There is a new test that can test for genetic abnormalities in the stool sample, Cologuard. This would not replace a colonoscopy but could be used as a screening tool for patients who do not want a colonoscopy. We discussed the importance of early detection of colon cancer. 4. Discussed current PSA screening. PSA screening can be done in most patients between age 50 and 65. However early detection of prostate cancer needs to carefully be balanced with complications with treatment. These include incontinence, impotence etc. Each patient should decide if they would like to have this test. 5. Discussed safe driving and no use of smart phone while driving 6. Age-appropriate immunizations were discussed. A tetanus booster is needed every 10 years. Flu vaccine is recommended every year just before the start of the flu season. Shingles vaccine is recommended after age 50 but not all insurances cover it. Pneumonia vaccine is given after age 65 unless there are certain comorbidities for which it is started earlier. 7. Diagnostic labs were discussed. These could include/not limited to CBC CMP and lipids with fasting blood glucose and insulin levels. Vitamin D and hemoglobin A1c testing might be appropriate. All questions answered to patients satisfaction. Patient verbalized understanding of diagnosis and treatments explained. To call sooner prior to next visit it any questions/concerns arise. Case discussed with collaborating physician Dr. Cohen who reviewed the assessment and plan. Chart, medications, labs, vital signs reviewed. Dictation was accomplished with the use of [employer]at voice recognition software, prone to medical misidentifications and grammatical errors. This is unintentional and the practitioner does try to identify and correct these, but some could still be present. Please do not hesitate to contact practitioner for clarification. Plan Of Treatment Pending Test Test Name Order Date Echocardiogram 05/08/2025 XR Finger LT Thumb 05/08/2025 LIPID PANEL, STANDARD 05/08/2025 COMPREHENSIVE METABOLIC PANEL 05/08/2025 COMPREHENSIVE METABOLIC PANEL 04/03/2025 CBC (INCLUDES DIFF/PLT) 04/03/2025 CBC (INCLUDES DIFF/PLT) 05/08/2025 URINALYSIS, COMPLETE 04/03/2025 URINALYSIS, COMPLETE 05/08/2025 HEMOGLOBIN A1c 05/08/2025 TSH 05/08/2025 VITAMIN D,25-OH,TOTAL,IA 05/08/2025 VITAMIN D,25-OH,TOTAL,IA 04/03/2025 Hemoglobin [id number] 04/03/2025 Next Appt Details Provider Name:PETE CHANG, 05/28/2026 09:00:00 AM, [address], [place], [address], Insurance Providers Payer Name Payer Address Payer Phone Subscriber Number Group Number Insured Name Patient Relationship to Insured Coverage Start Date Coverage End Date [facility] [address] [place] [address] [phone] [id number] Yesenia Coulter Self - patient is the insured Medical (General) History Medical History History ICD Code anxiety Surgical History Surgery Date(Month/Year) c sections x 2 bilateral triphalangeal thumbs with delt a phalanges at age 1
--- NOTE | 2025-07-05 07:57 | CA_ITS ---
Transthoracic Echocardiogram Patient (Last, First, Middle): Yesenia Coulter, Gender: Female Date of : 1985 Age: 39 Procedure Date: 07/05/2025 Procedure Type: Transthoracic Echocardiogram Location: OP Height: 165.1 cm Weight: 77.11 kg BSA: 1.85 m2 Heart Rate: bpm BP: 120 / 70 mmHg Pollution Control Engineer: DILLON/TABATHA Referring MD: Jessica NEVES Symptoms: [id number] DIZZINESS Study Quality: Fair ECG Rhythm: Sinus Conclusions: - The left ventricular systolic function is normal. The calculated ejection fraction is 57% by biplane method. - No obvious valvular pathology seen on this study. Findings Left Ventricle Normal left ventricular cavity size. There is mildly increased left ventricular wall thickness. The left ventricular systolic function is normal. The calculated ejection fraction is 57% by biplane method. There is no evidence of regional wall motion abnormalities. Diastolic function is normal for age. Right Ventricle Normal right ventricular cavity size and systolic function. Atria Both atria are normal in size. Aortic Valve There is a normal trileaflet aortic valve. There is no aortic valve stenosis. There is no aortic valve regurgitation. Mitral Valve The mitral valve appears normal. There is no mitral valve regurgitation. There is no mitral valve stenosis. Pulmonic Valve There is trace pulmonic valve regurgitation. Tricuspid Valve There is trace tricuspid valve regurgitation. There is no evidence of pulmonary hypertension. Great Vessels The asc aorta is normal in size. Venous The inferior vena cava is normal in size and collapses greater than 50% with inspiration. Pericardium/Pleural There is no evidence of pericardial effusion. Prior Study Comparison No prior study available for comparison. Recommendations, Care & Conclusions No obvious valvular pathology seen on this study. Measurements 2D Linear Measurements IVSd: 1.11 0.6-0.9/0.6-1.0 cm LVIDd: 4.33 3.9-5.3/4.2-5.9 cm LVIDd Index: 2.34 2.4-3.2/2.2-3.1 cm/m2 LVIDs: 2.83 2.0-3.6 cm LVPWd: 1.15 0.7-1.1 cm LA Diam: 3.20 2.7-3.8/3.0-4.0 cm LAIDs Index: 1.73 1.5-2.3 cm/m2 LV Mass: 213.21 67-162/88-224 g LV Mass Index: 115.25 43-95/49-115 g/m2 LVOT Diam: 2.30 3.0+(-)1.3 cm 2D Systolic Function EF 4C: 55.30 >55% EF 2C: 59.60 >55% EF BiP: 57.10 >55% Mitral Valve MV Pk E: 0.78 MV PK A: 0.60 MV Decel Time: 211.00 E/A: 1.30 E'Lateral: 10.60 E'Medial: 7.94 E/E' Med: 9.80 E/E' Lat: 7.40 PHT: 62.00 MVA PHT: 3.55 Decel Berks: 3.70 Aortic Valve AoV Pk Stefano: 1.23 AoV Mn Stefano: 0.91 AoV VTI: 0.26 AoV Pk Grad: 6.00 Aov Mn Grad: 4.00 BENJI Cont.VTI: 3.41 LVOT LVOT Pk Stefano: 1.17 LVOT Mn Stefano: 0.76 LVOT VTI: 0.21 LVOT Pk Grad: 5.00 LVOT Mn Grad: 3.00 LVOT Diam: 2.30 LVOT Area: 4.15 Diastolic Function MV Pk E: 0.78 MV Pk A: 0.60 E/A: 1.30 E'Medial: 7.94 E/E' Med: 9.80 E' Laterial: 10.60 E/E' Lat: 7.40 Right Ventricle TAPSE (mm): 20.40 TVS' Stefano: 15.40 Tricuspid Valve RA Press: 3.00 Great Vessels Aorta Sinus of Valsalva: 2.90 2.0-3.5 cm Ao Asc: 2.90 2.1-3.4 cm Pulmonary Valve PV Pk Stefano: 0.80 Peak PV Grad: 3.00 NM Pk Stefano: 0.77 Updated in Other Vendor System with Status of Final Bryon Mcintyre MD electronically signed on 07/06/2025 12:56:25 PM with status of Final
== END ==
LOC: HO.CARD 07:51
PROVIDERS: PCP Internal Medicine
DX: R42 Dizziness and giddiness (principal)
CPT/HCPCS: 93306

== ENCOUNTER → 2025-07-05 07:57 | Outpatient (BNV) | payer BC, SELFPAY | PROVIDERS: PCP Internal Medicine; Visit Provider Internal Medicine | DX: R42 Dizziness and giddiness (principal) | CPT/HCPCS: 93306 ==